=== PATIENT | female | born 1960 | race Caucasian/White ===

== ENCOUNTER 2022-01-11 21:30 | Emergency (ER) | payer SELFPAY ==
[~2022-01-11] VITALS: Ht 175.3 cm; Wt 82.7 kg
[2022-01-11 22:04] VITALS: TEMP 98.6
[2022-01-12] MEDS ORDERED: NORCO 325 MG-51 TAB PO (00:44)
[2022-01-12 01:11] VITALS: BP 126/84; PULSE 84
== END 2022-01-12 01:16 | disposition home or self-care (01) ==
LOC: COL.ER 21:30
DX: S82.141A Displaced bicondylar fracture of right tibia, initial encounter for closed fracture (principal); W10.9XXA Fall (on) (from) unspecified stairs and steps, initial encounter
CPT/HCPCS: L1846

== ENCOUNTER → 2024-03-19 | Outpatient (CLI) | payer MEDICARE ==
[~2024-03-19] MED LIST: NORCO 325 MG-51 TAB PO
== END ==
LOC: MC.RAD 11:14
DX: Z12.31 Encounter for screening mammogram for malignant neoplasm of breast (principal)